=== PATIENT | female | born 1990 | race Two or more races ===

== ENCOUNTER 2023-06-14 07:57 | Day surgery (SDC) | payer OTHER ==
[2023-06-02 11:42] LABS: MEAN CELL VOLUME 87.6 fL (80.00-100.00); MEAN CORPUSCULAR HGB CONC 34.3 g/dl (32.0-36.0); PLATELET COUNT 326 K/uL (150-450); RED BLOOD COUNT 4.68 M/uL (4.00-6.00); RED CELL DISTRIBUTION WIDTH 13.2 % (11.5-14.5)
[2023-06-02 11:49] LABS: URINE APPEARANCE Clear; URINE BILIRRUBIN Negative (NEGATIVE); URINE BLOOD Trace; URINE COLOR Yellow; URINE GLUCOSE Negative (NEGATIVE); URINE LEUKOCYTE Negative; URINE NITRATE Negative; URINE PROTEIN Negative (NEGATIVE); URINE UROBILINOGEN 0.2 E.U./dl
[2023-06-02 11:52] LABS: URINE BACTERIA 298.6 uL (0.0-1933); URINE RBC 12.3 uL (0.0-20.8); URINE WBC 2.6 uL (0.0-23.2)
[2023-06-02 12:12] LABS: ALBUMIN 3.7 gm/dL (3.4-5.0); BILIRUBIN TOTAL 0.38 mg/dL (0.3-1.2); CALCIUM 9.2 mg/dL (8.5-10.1); CREATININE SERUM 0.73 mg/dL (0.55-1.02); GFR 91.26; GLOBULINA 3.8 G/DL (2.4-3.5); POTASSIUM 3.98 mEq/L (3.5-5.1); TOTAL PROTEIN 7.5 gm/dL (6.4-8.2)
[2023-06-02 12:17] LABS: INR 1.02; PARTIAL THROMBOPLASTIN TIME 30.5 SECONDS (22.0-34.0); PROTHROMBIN TIME 10.7 SECONDS (9.0-11.5)
[~2023-06-14] VITALS: Ht 154.9 cm; Wt 70.3 kg
[2023-06-14] MEDS ORDERED: METRONIDAZOLE/SODIUM CHLORIDE 500 MG/100 ML PIGGYBACK IV ONE ×2 (09:42→14:30)
[2023-06-14] MEDS ORDERED: CEFTRIAXONE SODIUM 2,000 MG VIAL ONE (09:42)
[2023-06-14] MEDS ORDERED: BUPIVACAINE HCL/PF 0.5% 30ML ML ONE (13:06)
[2023-06-14] MEDS ORDERED: DIBUCAINE 15 GM OINT..GM. TUBE ONE (13:07)
[2023-06-14] MEDS ORDERED: POVIDONE-IODINE 118 ML BOTT TOP ONE ×2 (13:08→14:30)
[2023-06-14] MEDS ORDERED: FAMOTIDINE/PF 20 MG/2 ML VIAL ONE (14:00)
[2023-06-14] MEDS ORDERED: DIBUCAINE 30 GM TUBE RECTAL ONE (14:30)
[2023-06-14] MEDS ORDERED: CEFTRIAXONE SODIUM 2,000 MG VIAL IV ONE (14:30)
[2023-06-14] MEDS ORDERED: HEMOSTATIC MATRIX 1 KIT KIT TOP ONE (14:30)
[2023-06-14] MEDS ORDERED: CELECOXIB200 MG PO (14:41)
[2023-06-14] MEDS ORDERED: HIBICLENS118 ML TOP (14:42)
[2023-06-14] MEDS ORDERED: TRAM1TAB98 PO (14:42)
[2023-06-14] MEDS ORDERED: NEURONTIN300 MG PO (14:42)
== END 2023-06-14 19:20 | disposition home or self-care (01) ==
LOC: CIR.AMB 07:57
PROVIDERS: ATTEND Surgery
DX: K60.3 Anal fistula (principal)

== ENCOUNTER 2023-07-17 08:07 | Inpatient (IN) | payer OTHER ==
[~2023-07-17] VITALS: Ht 154.9 cm; Wt 70.3 kg
[~2023-07-17 08:07] MED LIST: CELECOXIB200 MG PO; HIBICLENS118 ML TOP; NEURONTIN300 MG PO; TRAM1TAB98 PO
[2023-07-17] MEDS ORDERED: 0.9 % SODIUM CHLORIDE 1,000 ML IV STA (08:42)
[2023-07-17] MEDS ORDERED: CEFTRIAXONE SODIUM 1,000 MG VIAL IV ONE (08:45)
[2023-07-17 09:08] LABS: HEMATOCRIT 38.9 % (36.0-45.00); HEMOGLOBIN 13.4 g/dL (12.0-15.00); MEAN CELL VOLUME 86.9 fL (80.00-100.00); MEAN CORPUSCULAR HEMOGLOBIN 29.9 pg (27.00-32.0); MEAN CORPUSCULAR HGB CONC 34.4 g/dl (32.0-36.0); PLATELET COUNT 303 K/uL (150-450); RED BLOOD COUNT 4.48 M/uL (4.00-6.00); RED CELL DISTRIBUTION WIDTH 13.1 % (11.5-14.5)
[2023-07-17 09:41] LABS: CALCIUM 9.2 mg/dL (8.5-10.1); CREATININE SERUM 0.87 mg/dL (0.55-1.02); GFR 74.53; POTASSIUM 3.88 mEq/L (3.5-5.1)
[2023-07-17 09:42] LABS: PH,URINE 5.5 (5.0-8.0); URINE APPEARANCE Clear; URINE BILIRRUBIN Negative (NEGATIVE); URINE BLOOD Negative; URINE COLOR Yellow; URINE GLUCOSE Negative (NEGATIVE); URINE LEUKOCYTE Negative; URINE NITRATE Negative; URINE PROTEIN Negative (NEGATIVE); URINE UROBILINOGEN 0.2 E.U./dl
[2023-07-17] MEDS ORDERED: RINGERS SOLUTION,LACTATED 1,000 ML IV SCH (09:45)
[2023-07-17 09:47] LABS: URINE BACTERIA 51.6 uL (0.0-1933); URINE EPITHELIAL CELLS 2.3 uL (0.0-38.8); URINE RBC 11.7 uL (0.0-20.8); URINE WBC 0.9 uL (0.0-23.2)
[2023-07-17 09:54] LABS: INR 0.98; PROTHROMBIN TIME 10.3 SECONDS (9.0-11.5)
[2023-07-17] MEDS ORDERED: DIBUCAINE 30 GM TUBE ONE (13:46)
[2023-07-17] MEDS ORDERED: BUPIVACAINE HCL/PF 0.5% 30ML ML ONE (13:46)
[2023-07-17] MEDS ORDERED: LIDOCAINE HCL 1%/Epi 20ML VIAL IJ ONE ×2 (13:46→14:30)
[2023-07-17] MEDS ORDERED: HEMOSTATIC MATRIX 1 KIT KIT TOP ONE ×2 (13:48→14:30)
[2023-07-17] MEDS ORDERED: POVIDONE-IODINE 118 ML BOTT TOP ONE ×2 (13:48→14:45)
[2023-07-17] MEDS ORDERED: METRONIDAZOLE/SODIUM CHLORIDE 500 MG/100 ML PIGGYBACK IV ONE ×2 (14:13→14:30)
[2023-07-17] MEDS ORDERED: CEFTRIAXONE SODIUM 2,000 MG VIAL ONE (14:14)
[2023-07-17] MEDS ORDERED: CEFTRIAXONE SODIUM 2,000 MG VIAL IV ONE (14:30)
[2023-07-17] MEDS ORDERED: DIBUCAINE 30 GM TUBE RECTAL ONE (14:30)
[2023-07-17] MEDS ORDERED: BUPIVACAINE HCL 30 ML VIAL IJ ONE (14:30)
[2023-07-17] MEDS ORDERED: METRONIDAZOLE/SODIUM CHLORIDE 500 MG/100 ML PIGGYBACK IV SCH (17:00)
[2023-07-17] MEDS ORDERED: ONDANSETRON HCL 2 MG/ML VIAL IV PRN (17:00)
[2023-07-17] MEDS ORDERED: HYOSCYAMINE SULFATE 0.125 MG TAB.SUBL SL SCH (17:00)
[2023-07-17] MEDS ORDERED: OxyCODONE HCL 5 MG TABLET (ROXICODONE) PO PRN (17:00)
[2023-07-17] MEDS ORDERED: GABAPENTIN 300 MG CAPSULE PO SCH (17:00)
[2023-07-17] MEDS ORDERED: MORPHINE SULFATE 4 MG/ML CARTRIDGE IV PRN (17:00)
[2023-07-17] MEDS ORDERED: ACETAMINOPHEN 500 MG GEL..CAP PO SCH (20:00)
[2023-07-17] MEDS ORDERED: FAMOTIDINE/PF 20 MG/2 ML VIAL IV PUSH SCH (21:00)
[2023-07-17] MEDS ORDERED: CIPROFLOXACIN IN 5 % DEXTROSE 400 MG/200 ML PIGGYBAG IV SCH (21:00)
[2023-07-18] MEDS ORDERED: CELECOXIB200 MG PO (08:03)
[2023-07-18] MEDS ORDERED: AMOX1TAB5 PO (08:03)
[2023-07-18] MEDS ORDERED: INTESTINEX680 M1 PO (08:03)
[2023-07-18] MEDS ORDERED: LACTOBACILLUS ACIDOPHILUS 1 CAP CAP PO SCH (09:00)
[2023-07-18] MEDS ORDERED: ENOXAPARIN SODIUM 40 MG/0.4 ML SYRINGE SUBCUTANEO SCH (17:00)
[2023-07-19] MEDS ORDERED: ENOXAPARIN SODIUM 40 MG/0.4 ML SYRINGE SUBCUTANEO SCH (09:00)
== END 2023-07-18 11:11 | disposition home or self-care (01) | DRG 349 ==
LOC: ER 08:07 → SEC-K 10:07 → O/R 10:07 → SURH 10:07 → O/R 13:23 → SURH 15:05
PROVIDERS: Emergency Medicine; ADMIT Surgery; ATTEND Surgery
PROC: 0HB9XZZ Excision of Perineum Skin, External Approach (ICD-10-PCS; 2023-07-17)
PROC: 0D9Q7ZZ Drainage of Anus, Via Natural or Artificial Opening (ICD-10-PCS; principal; 2023-07-17 12:00)
DX: K60.3 Anal fistula (principal); Z20.822 Contact with and (suspected) exposure to COVID-19

== ENCOUNTER 2023-10-18 05:50 | Day surgery (SDC) | payer OTHER ==
[2023-10-16 11:38] LABS: HEMATOCRIT 39.9 % (36.0-45.00); HEMOGLOBIN 13.7 g/dL (12.0-15.00); MEAN CELL VOLUME 86.6 fL (80.00-100.00); MEAN CORPUSCULAR HEMOGLOBIN 29.6 pg (27.00-32.0); MEAN CORPUSCULAR HGB CONC 34.2 g/dl (32.0-36.0); PLATELET COUNT 323 K/uL (150-450); RED BLOOD COUNT 4.61 M/uL (4.00-6.00); RED CELL DISTRIBUTION WIDTH 13.5 % (11.5-14.5)
[2023-10-16 11:40] LABS: PH,URINE 5.5 (5.0-8.0); URINE APPEARANCE Clear; URINE BILIRRUBIN Negative (NEGATIVE); URINE BLOOD Negative; URINE COLOR Yellow; URINE GLUCOSE Negative (NEGATIVE); URINE LEUKOCYTE Negative; URINE NITRATE Negative; URINE PROTEIN Negative (NEGATIVE); URINE UROBILINOGEN 0.2 E.U./dl
[2023-10-16 11:43] LABS: URINE BACTERIA 443.2 uL (0.0-1933); URINE EPITHELIAL CELLS 12.3 uL (0.0-38.8); URINE RBC 7.6 uL (0.0-20.8)
[2023-10-16 11:45] LABS: URINE WBC 1.2 uL (0.0-23.2)
[2023-10-16 12:20] LABS: INR 0.99; PROTHROMBIN TIME 10.4 SECONDS (9.0-11.5)
[2023-10-16 12:24] LABS: ALBUMIN 3.8 gm/dL (3.4-5.0); BILIRUBIN TOTAL 0.52 mg/dL (0.3-1.2); CALCIUM 9.5 mg/dL (8.5-10.1); CREATININE SERUM 0.74 mg/dL (0.55-1.02); GFR 89.84; POTASSIUM 3.85 mEq/L (3.5-5.1); TOTAL PROTEIN 7.8 gm/dL (6.4-8.2)
[~2023-10-18] VITALS: Ht 154.9 cm; Wt 67.6 kg
[~2023-10-18 05:50] MED LIST changes: +AMOX1TAB5 PO; +INTESTINEX680 M1 PO
[2023-10-18] MEDS ORDERED: BUPIVACAINE HCL/MPF 0.5% 30ML VIAL ONE (06:51)
[2023-10-18] MEDS ORDERED: DIBUCAINE 30 GM TUBE ONE (06:51)
[2023-10-18] MEDS ORDERED: LIDOCAINE HCL 1%/EPINEPHRINE 20ML VIAL IJ ONE (06:52)
[2023-10-18] MEDS ORDERED: HEMOSTATIC MATRIX 1 KIT KIT TOP ONE (06:52)
[2023-10-18] MEDS ORDERED: POVIDONE-IODINE 118 ML BOTT TOP ONE (06:52)
[2023-10-18] MEDS ORDERED: CEFTRIAXONE SODIUM 2,000 MG VIAL ONE (06:57)
[2023-10-18] MEDS ORDERED: METRONIDAZOLE/SODIUM CHLORIDE 500 MG/100 ML PIGGYBACK IV ONE (06:57)
[2023-10-18] MEDS ORDERED: CELECOXIB200 MG PO (13:23)
[2023-10-18] MEDS ORDERED: CIPRO500 MG PO (13:23)
[2023-10-18] MEDS ORDERED: HIBICLENS118 ML TOP (13:23)
[2023-10-18] MEDS ORDERED: METRONIDAZOLE500 MG PO (13:23)
== END 2023-10-18 14:40 | disposition home or self-care (01) ==
LOC: CIR.AMB 05:50
PROVIDERS: ATTEND Surgery
DX: K60.3 Anal fistula (principal); L92.9 Granulomatous disorder of the skin and subcutaneous tissue, unspecified